=== PATIENT | female | born 1985 | race Caucasian/White ===

== ENCOUNTER 2024-10-25 21:02 | Emergency (ER) | payer MEDICAID ==
[~2024-10-25] VITALS: Ht 167.6 cm; Wt 108.9 kg
[2024-10-25] MEDS: IV NS 0.9% 1,000 ML BAG IV ONE (22:30)
[2024-10-25 22:43] LABS: BASOPHILS # (AUTO) 0.1 K/uL (0.0-0.2); BASOPHILS % (AUTO) 0.6 % (0.0-2.0); EOSINOPHILS # (AUTO) 0.3 K/uL (0.0-0.7); EOSINOPHILS % (AUTO) 2.4 % (0.0-6.0); HEMATOCRIT 41 % (33-45); HEMOGLOBIN 13.6 g/dL (11.5-14.8); LYMPHOCYTES # (AUTO) 3.9 K/uL (0.8-4.8); LYMPHOCYTES % (AUTO) 37.3 % (20.0-44.0); MEAN CORPUSCULAR HEMOGLOBIN 26 PG (26.0-33.0); MEAN CORPUSCULAR HGB CONC 33 g/dl (31.0-36.0); MEAN CORPUSCULAR VOLUME 78 fL (82-100); MONOCYTES # (AUTO) 0.7 K/uL (0.1-1.30); MONOCYTES % (AUTO) 6.7 % (2.0-12.0); NEUTROPHILS # (AUTO) 5.6 K/uL (1.8-8.9); PLATELET COUNT (AUTO) 366 K/uL (150-450); RED BLOOD CELL COUNT(AUTO) 5.27 MIL/uL (4.0-5.2); RED CELL DISTRIBUTION WIDTH 14.1 % (11.5-15.0); WHITE BLOOD COUNT (AUTO) 10.6 K/uL (4.3-11.0)
[2024-10-25 22:52] LABS: SITE, VBG VBG - N/A; VBG BASE EXCESS -6.6 mmol/L (-2.0-3.0); VBG COHb 0.1 % (0.5-1.5); VBG MetHb 0.1 % (0.5-1.5); VBG O2Hb 97.3 % (0-79); VBG OXYGEN SATURATION 97.5 % (60.0-85.0); VBG PCO2 21.9 mmHg (38.0-54.0); VBG PH 7.454 (7.320-7.430); VBG PO2 94.9 mmHg (23.0-48.0); VBG TOTAL HEMOGLOBIN 14.3 G/dL (12.0-16.0)
[2024-10-25 23:10] LABS: CALCIUM, SERUM 9.3 mg/dL (8.5-10.1); POTASSIUM 4.5 mmol/L (3.5-5.1)
[2024-10-25 23:20] LABS: MAGNESIUM 2.2 mg/dL (1.8-2.4); PHOSPHORUS 2.8 mg/dL (2.5-4.9); PREGNANCY TEST SERUM QUAN 1 mIU/mL (0-6)
[2024-10-26 00:06] LABS: APPEARANCE,URINE CLEAR (CLEAR); BILIRUBIN,URINE NEGATIVE (NEGATIVE); BLOOD, URINE 1+ Ery/uL (NEGATIVE); COLOR,URINE YELLOW (YELLOW); KETONES,URINE 3+ mg/dL (NEGATIVE); LEUKOCYTE ESTERASE ,URINE NEGATIVE (NEGATIVE); NITRITE, URINE NEGATIVE (NEGATIVE); PH,URINE 5.5 (5.0-8.0); PROTEIN,URINE NEGATIVE (NEGATIVE); UGLUCOSE 3+ mg/dL (NEGATIVE); UROBILINOGEN,URINE 0.2 EU/dL (0.2)
[2024-10-26 00:07] LABS: ADD URINE CULTURE NO; BACTERIA,URINE Rare /HPF (None Seen); SQUAMOUS EPITHELIAL CELL,UR Few /HPF (None Seen)
[2024-10-26] MEDS ORDERED: INSULIN REGULAR, HUMAN 100 UNIT/ML 10 ML VIAL ONE (00:19)
[2024-10-26] MEDS: INSULIN REGULAR, HUMAN 100 UNIT/ML 10 ML VIAL IV ONE (00:27)
[2024-10-26 00:29] LABS: ACETONE, SERUM NEGATIVE (NEGATIVE)
[2024-10-26] MEDS: IV NS 0.9% 1,000 ML BAG IV ONE (00:41)
[2024-10-26 02:35] VITALS: BP 126/80; TEMP 98.5; O2SAT 100
== END 2024-10-26 02:35 | disposition home or self-care (01) ==
LOC: ER 21:19
DX: R73.9 Hyperglycemia, unspecified (principal); R35.0 Frequency of micturition; H53.8 Other visual disturbances
CPT/HCPCS: 99284; 71045; 96361 ×2; 82803 ×2; 85025; 80048; 82010; 83735; 84100; 81001; 36415; 82962 ×3; 84702; 96374; J7030; J1815